=== PATIENT | male | born 1985 | race Caucasian/White ===

== ENCOUNTER 2017-11-07 08:15 | Emergency (ER) | payer OTHER ==
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
[2017-11-07 08:48] VITALS: BMI 30.4
[2017-11-07] MEDS ORDERED: traMADol HCL 50 MG TABLET PO ONE (09:00)
[2017-11-07] MEDS ORDERED: traMADol HCL 50 MG TABLET ONE (09:13)
[2017-11-07] MEDS ORDERED: IBUPROFEN 400 MG TABLET (FP) PO ONE ×2 (10:50→10:54)
[2017-11-07 11:36] VITALS: BP 138/98; PULSE 73; TEMP 97.9
== END 2017-11-07 11:36 | disposition home or self-care (01) ==
LOC: JER 08:15
DX: S46.812A Strain of other muscles, fascia and tendons at shoulder and upper arm level, left arm, initial encounter (principal); V43.52XA Car driver injured in collision with other type car in traffic accident, initial encounter; Y93.89 Activity, other specified; Y92.410 Unspecified street and highway as the place of occurrence of the external cause
CPT/HCPCS: 70450-TC; 72125-TC; 99282-25